=== PATIENT | female | born 1980 | race Caucasian/White ===

== ENCOUNTER → 2022-11-27 10:14 | Outpatient (BNVA) | payer SELFPAY | PROVIDERS: Visit Provider Physician Assistant Medical | DX: Z02.1 Encounter for pre-employment examination (principal) ==

== ENCOUNTER 2023-08-21 11:25 | Inpatient (IN) | payer BC, SELFPAY ==
--- NOTE | ~2023-08-21 | CT_ITS ---
EXAMINATION: CT ABDOMEN AND PELVIS WITH CONTRAST CLINICAL INFORMATION: Pancreatitis. Worsening abdominal pain. COMPARISON: None available. TECHNIQUE: Multidetector volumetric images were obtained from the superior aspect of the liver through the pubic symphysis following administration 85 mL of Omnipaque 350 intravenous contrast. Sagittal and coronal reformatted images were obtained on the technologist's workstation. Oral contrast: No This CT examination was performed using dose optimization techniques as appropriate, variously including the following: *Automated exposure control *Adjustment of mA and/or kV according to patient size (this includes techniques or standardized protocols for targeted exams where dose is matched to indication/reason for exam; i.e. extremities or head) *Use of iterative reconstruction technique DLP: 1071 mGy-cm FINDINGS: LUNG BASES: There are bilateral small pleural effusions with bibasilar atelectasis. The heart size is normal. LIVER, GALLBLADDER, AND BILIARY TREE: The liver is normal in size, shape, and diffusely hypoattenuated. No focal hepatic lesion or biliary ductal dilatation is present. The gallbladder is unremarkable with no evidence of radiopaque gallstones, gallbladder wall thickening, or obvious pericholecystic inflammatory changes. PANCREAS: There is normal enhancement seen throughout the pancreas with large amount of peripancreatic fluid collection from acute pancreatitis. Fluid tracks along bilateral paracolic gutter into the pelvis. The fluid has increased in the pelvis. There is no suspicion for necrosis. SPLEEN: Unremarkable. ADRENAL GLANDS: Unremarkable. KIDNEYS AND URETERS: The kidneys are normal in size, shape, and attenuation. No hydronephrosis, hydroureter, or calculi seen. No perinephric stranding. BLADDER: Unremarkable. GASTROINTESTINAL TRACT: There is scattered stool and gas seen throughout the colon without significant distention. The small bowel loops are normal caliber. Appendix is not seen. ABDOMINAL WALL: No significant hernia is appreciated. LYMPH NODES: Normal. VASCULAR: Unremarkable. PELVIC VISCERA: The uterus is anteverted with an IUD well located within the endometrial canal. No solid mass seen. There is small amount of free fluid in the pelvis. No abnormal pelvic or inguinal lymph nodes. OSSEOUS STRUCTURES: Unremarkable. CT/CT abdomen pelvis w IV con IMPRESSION: There is new bilateral small pleural effusions with underlying bibasilar atelectasis. Acute pancreatitis with peripancreatic fluid extending to bilateral paracolic gutters and pelvis which appears new. Mild fatty infiltration of liver. Fleischner guidelines were followed.
--- NOTE | ~2023-08-21 | CT_ITS ---
EXAMINATION: CT ABDOMEN AND PELVIS WITH CONTRAST CLINICAL INFORMATION: Abdominal pain. COMPARISON: None available. TECHNIQUE: Multidetector volumetric images were obtained from the superior aspect of the liver through the pubic symphysis following administration 85 mL of Omnipaque 350 intravenous contrast. Sagittal and coronal reformatted images were obtained on the technologist's workstation. Oral contrast: No This CT examination was performed using dose optimization techniques as appropriate, variously including the following: *Automated exposure control *Adjustment of mA and/or kV according to patient size (this includes techniques or standardized protocols for targeted exams where dose is matched to indication/reason for exam; i.e. extremities or head) *Use of iterative reconstruction technique DLP: 966 mGy-cm FINDINGS: LUNG BASES: There is minimal scarring or dependent atelectatic change at the left lung base. LIVER, GALLBLADDER, AND BILIARY TREE: The liver is of diminished attenuation. No focal liver lesions are seen. There is no intrahepatic biliary duct dilatation The gallbladder is unremarkable with no evidence of radiopaque gallstones, gallbladder wall thickening, or obvious pericholecystic inflammatory changes. PANCREAS: There is moderate peripancreatic infiltration/fluid. There is fluid tracking inferiorly along the retroperitoneum. SPLEEN: Unremarkable. ADRENAL GLANDS: Unremarkable. KIDNEYS AND URETERS: The kidneys are normal in size, shape, and attenuation. No hydronephrosis, hydroureter, or calculi seen. No perinephric stranding. BLADDER: Unremarkable. GASTROINTESTINAL TRACT: The small and large bowel are unremarkable. The appendix is unremarkable. ABDOMINAL WALL: No significant hernia is appreciated. LYMPH NODES: Normal. VASCULAR: Unremarkable. PELVIC VISCERA: An IUD is noted in place. OSSEOUS STRUCTURES: Unremarkable. CT/CT abdomen pelvis w IV con IMPRESSION: Moderate peripancreatic infiltration/fluid consistent with pancreatitis. Mild fatty infiltration of the liver. Fleischner guidelines were followed. Fleischner guidelines were followed.
--- NOTE | 2023-08-21 11:29 | ECG_ITS ---
Test Reason : cp abd pain Blood Pressure : / mmHG Vent. Rate : 071 BPM Atrial Rate : 071 BPM P-R Int : 140 ms QRS Dur : 082 ms QT Int : 402 ms P-R-T Axes : 020 024 014 degrees QTc Int : 436 ms Normal sinus rhythm Normal ECG No previous ECGs available Referred By: Rishabh Faye Electronically Signed By:ASHER SUN MD
[2023-08-21 12:17] VITALS: BP 153/101; PULSE 83; RESP 16; TEMP 35.8; O2SAT 98; BMI 38.7
--- NOTE | 2023-08-21 12:18 | ED.GENADULT ---
HPI - General Adult General Chief complaint: Abdominal Pain Stated complaint: chest pain and abd pain Time Seen by Provider: 08/21/23 14:11 Source: patient Mode of arrival: ambulatory Limitations: no limitations History of Present Illness HPI narrative: patient is an alcoholic, never in rehab who presents with increasing abdominal pain, vomiting and feeling like she is in withdrawal. She is not tolerating oral fluids Onset (ago): week(s) Severity: moderate Related Data Previous Rx's Medication Instructions Recorded cyclobenzaprine 10 mg tablet 10 mg PO BEDTIME #14 tabs 03/14/22 meloxicam 15 mg tablet 15 mg PO DAILY #14 tabs 03/14/22 Allergies Allergy/AdvReac Type Severity Reaction Status Date / Time No Known Allergies Allergy Mild NOT Unverified 03/14/22 12:38 APPLICABLE Review of Systems Review of Systems: Yes all other systems are reviewed and are negative Neurologic: Denies Sensory deficit (Neuro) [facility] Social History Social History Advance Directives: No Physical Exam ED Vital Signs: Vital Signs - 24 hr 08/21/23 12:17 Temperature 96.4 F L Pulse Rate 83 Respiratory Rate 16 Blood Pressure 153/101 H Pulse Oximetry 98 Oxygen Delivery Method Room Air BMI result Body Mass Index 38.7 Const Other: female looking ill, shaking Nutritional Appearance: average body habitus Orientation/consciousness: oriented to person and patient oriented x3 Limitations: no limitations HENMT Head: Yes normal to inspection Ears: external ears normal General nose exam: Normal external nose present Mouth: Normal oral and palatal mucosa present and oropharynx normal Throat: Yes posterior oropharynx normal Eyes General: appearance normal, both eyes and all related structures Neck Neck: Yes normal visual inspection Chest Chest palpation & inspection: normal inspection of the chest Resp Auscultation: clear to auscultation bilaterally Cardio Jugular venous distension: no JVD Rate: regular rate Rhythm: regular rhythm Heart sounds: S1 normal heart sound present and S2 normal heart sound present GI Other: epigastric pain Auscultation: normal bowel sounds General: Yes no CVA tenderness Back/Spine/Pelvis Back: no CVA tenderness Skin General skin exam: no rashes or lesions noted Neuro General: oriented to person and patient oriented x3 Cranial nerves: Yes CN's II-XII intact bilaterally Motor exam (neuro): 5/5 motor strength present throughout Sensory Exam: No Sensory deficit (Neuro) Extrem General: Yes normal to inspection Psych Appearance: grossly normal Course Course Course Narrative: [id number]-old female presents for evaluation of upper abdominal pain that radiates through to her back. Pain started at 5:00 a.m. this morning. Patient reports heavy alcohol use. Last drink was yesterday. Clinical concern for pancreatitis. Plan for labs. Imaging will be deferred to primary care provider Reevaluation(s) Reevaluation #1: Patient in both alcohol withdrawal and acute pancreatitis will get the patient admitted Time: 15:47 Reevaluation #2: I spent 40 minutes of critical care, with interventions, assessments, speaking to patient, consultants, and family. Time: 15:47 Medications Administered Generic Name Dose Route Start Last Admin Trade Name Freq PRN Reason Stop Dose Admin Sodium Chloride 1,000 mls @ 999 mls/hr 08/21/23 14:30 08/21/23 14:25 Ns IVCONT 08/21/23 16:30 999 mls/hr .Q1H1M ROBIN Administration Discontinued Medications Generic Name Dose Route Start Last Admin Trade Name Freq PRN Reason Stop Dose Admin Hydromorphone HCl 2 mg 08/21/23 15:00 08/21/23 15:08 Hydromorphone Hcl 2 Mg/Ml Vial IVPUSH 08/21/23 15:01 2 mg ONCE ONE Administration Protocol Iohexol 100 ml 08/21/23 14:48 08/21/23 14:48 Iohexol 350 Mg/Ml 100 Ml Infus..Btl IV 08/21/23 14:49 85 ml ONCE ONE Administration Pantoprazole Sodium 40 mg 08/21/23 14:16 08/21/23 14:24 Pantoprazole Sodium 40 Mg/10 Ml Vial IVPUSH 08/21/23 14:17 40 mg ONCE ONE Administration Phenobarbital Sodium 65 mg 08/21/23 14:16 08/21/23 14:24 Phenobarbital Sodium 65 Mg/Ml Vial IVPUSH 08/21/23 14:17 65 mg ONCE ONE Administration Medical Decision Making Differential Diagnosis Differential Diagnoses: The differential diagnosis associated with the presentation includes (pancreatitis, alcohol withdrawal, alcohol dependency) Admission/Observation Consideration of admission/observation: Escalation of care including admission/observation considered (upon arrival patient was considered for admission) Consult Healthcare Provider Management of the patient was discussed with: Hospitalist Lab Data MDM Lab Attestation statement: I reviewed the patient's lab results. (low bicarb noted) 08/21/23 12:28 08/21/23 12:28 Labs: Lab Results 08/21/23 Range/Units 12:28 WBC 16.2 H (4.8-10.8) X10*3/uL RBC 4.98 (4.20-5.50) X10*6/uL Hgb 15.5 (12.0-16.0) g/dl Hct 44.9 (37.0-47.0) % MCV 90.2 (80.0-98.0) fL MCH 31.1 (27.0-33.0) pg MCHC 34.5 (31.0-35.0) g/dl RDW 14.9 (11.0-16.0) % Plt Count 284 (160-400) X10*3/uL MPV 8.5 L (9.4-12.3) fL Immature Gran % (Auto) 0.6 H (0.0-0.4) % Neut % (Auto) 85.4 H (45-73) % Lymph % (Auto) 11.5 L (20-40) % [place] % (Auto) 2.2 (2-11) % Eos % (Auto) 0.1 (0-4) % Baso % (Auto) 0.2 (0-2) % Lymph # (Auto) 1.9 (1.2-4.9) X10*3/uL [place] # (Auto) 0.4 (0.1-1.2) X10*3/uL Eos # (Auto) 0.0 (0.0-0.4) X10*3/uL Baso # (Auto) 0.0 (0.0-0.2) X10*3/uL Abs Immat Gran (auto) 0.10 H (0.00-0.03) X10*3/uL Absolute Neuts (auto) 13.8 H (2.0-8.3) x10*3/uL Absolute Nucleated RBC 0.000 (0.0-0.012) X10*3/uL Nucleated RBC % (auto) 0.0 (0.0-0.2) /100WBC PT 11.1 (11.1-13.3) SEC INR 0.9 (0.9-1.1) APTT 27.1 (26.0-36.4) SEC Sodium 138 (135-145) mmol/L Potassium 4.1 (3.3-5.1) mmol/L Chloride 104 (96-108) mmol/L Carbon Dioxide 14 L (22-29) mmol/L Anion Gap 24 H (12-20) BUN 16 (9-16) mg/dL Creatinine 0.84 (0.5-1.4) mg/dL Estim Creat Clear Calc 110.1 Estimated GFR > 60 Random Glucose 136 H (60-115) mg/dL Calcium 9.2 (8.4-10.2) mg/dL Total Bilirubin 0.4 (0.0-1.0) mg/dL AST 65 H (5-31) U/L ALT 53 H (0-31) U/L Alkaline Phosphatase 80 (39-117) U/L Troponin I High Sens < 2.7 (<3.5-17.0) ng/L Total Protein 8.9 H (6.5-8.0) g/dL Albumin 4.2 (3.5-5.0) g/dL Lipase 1430 H (8-78) U/L Beta HCG, Quant < 2 mIU/mL Ethyl Alcohol 95 mg/dL Independent Interpretation I performed an independent interpretation of an: EKG (sinus 71, no st or twave changes) and CT Scan (abdomen: peripancreatic fluid) Radiology Impression Discussion of test interpretation with radiology: I have reviewed the radiologist's reading. Tests considered The following testing was considered but not selected: US considered but not evidence of gallstone pancreatitis Chronic Conditions Patient?s care impacted by: Other (alcoholism) Social Determinants Patient?s care significantly limited by Social Determinants of Health including: Alcoholism and drug addiction in family Discharge Plan Discharge Clinical Impression: Pancreatitis, Alcohol withdrawal Patient Disposition: Admitted As Inpatient
[2023-08-21 12:34] LABS: MANUAL DIFF FLAG NO
[2023-08-21 12:36] LABS: Basophils Percent Auto 0.2 % (0-2); Eosinophils Percent Auto 0.1 % (0-4); Hematocrit 44.9 % (37.0-47.0); Hemoglobin 15.5 g/dl (12.0-16.0); Imm Gran Pct Auto 0.6 % (0.0-0.4); Lymphocytes Absolute Auto 1.9 X10*3/uL (1.2-4.9); Lymphocytes Percent Auto 11.5 % (20-40); Mean Corpuscular HGB Conc 34.5 g/dl (31.0-35.0); Mean Corpuscular Hemoglobin 31.1 pg (27.0-33.0); Mean Corpuscular Volume 90.2 fL (80.0-98.0); Mean Platelet Volume 8.5 fL (9.4-12.3); Monocytes Absolute Auto 0.4 X10*3/uL (0.1-1.2); Monocytes Percent Auto 2.2 % (2-11); Neutrophils Absolute Auto 13.8 x10*3/uL (2.0-8.3); Neutrophils Percent Auto 85.4 % (45-73); Platelet Count 284 X10*3/uL (160-400); Red Blood Count 4.98 X10*6/uL (4.20-5.50); Red Cell Distribution Width 14.9 % (11.0-16.0); White Blood Count 16.2 X10*3/uL (4.8-10.8)
[2023-08-21 12:42] LABS: INTERNATIONAL NORM RATIO 0.9 (0.9-1.1); Prothrombin Time 11.1 SEC (11.1-13.3)
[2023-08-21 12:44] LABS: Partial Thromboplastin Time 27.1 SEC (26.0-36.4)
[2023-08-21 12:49] LABS: Ethanol 95 mg/dL
[2023-08-21 13:00] LABS: Troponin-I High Sensitivity < 2.7 ng/L (<3.5-17.0)
[2023-08-21 13:16] LABS: Alanine Aminotransferase 53 U/L (0-31); Albumin Level 4.2 g/dL (3.5-5.0); Alkaline Phosphatase 80 U/L (39-117); Anion Gap 24 (12-20); Aspartate Amino Transferase 65 U/L (5-31); Bilirubin Total 0.4 mg/dL (0.0-1.0); Blood Urea Nitrogen 16 mg/dL (9-16); Calcium 9.2 mg/dL (8.4-10.2); Carbon Dioxide 14 mmol/L (22-29); Chloride 104 mmol/L (96-108); Creatinine Clr Calc Pharmacy 110.1; Estimated Glomerular Filt Rate > 60; Glucose Random 136 mg/dL (60-115); HCG Quantitative < 2 mIU/mL; Lipase 1430 U/L (8-78); Potassium 4.1 mmol/L (3.3-5.1); Sodium 138 mmol/L (135-145); Total Protein 8.9 g/dL (6.5-8.0)
[2023-08-21] MEDS: Pantoprazole Sodium 40 MG/10 ML VIAL IVPUSH (14:24)
[2023-08-21] MEDS: PHENobarbitaL sodium 65 MG/ML VIAL IVPUSH (14:24)
[2023-08-21] MEDS: 0.9 % Sodium Chloride 1,000 ML 999 ML IVCONT ×2 (14:25→16:34)
[2023-08-21] MEDS: iohexoL 350 MG/ML 100 ML INFUS..BTL IV (14:48)
[2023-08-21] MEDS: HYDROmorphone HCl 2 MG/ML VIAL IVPUSH (15:08)
[2023-08-21] MEDS: LORazepam 1 MG TABLET 2 MG PO (16:34)
--- NOTE | 2023-08-21 17:31 | P.HPHOSP_ITS ---
<Statement entered by Patricia Johnson MD - 08/21/23 18:58> The patient was seen and evaluated with JANNA Evans. I agree with her note, assessment and plan with the following. In summary , a 43 year old lady with PMH of alcoholism among others who presents with abdominal pain and signs of withdrawal. #Acute alcoholic pancreatitis: IVF, Narcotics, NPO #Alcohol use disorder with alcohol withdrawal: Phenobarbital protocol, CIWA Rest of evaluations by PA note. History of Present Illness Date of Service: 08/21/23 Attending physician on admission: Patricia Johnson Chief Complaint: abd pain 43-year-old female with history of alcohol use disorder presented to the ED earlier today for evaluation of severe abdominal pain ongoing since this morning. The patient reports she drinks about 1 L of vodka on a daily basis, last drink was last night. This morning woke up with severe diffuse abdominal pain but worse in the epigastric area. Reports some anorexia but denies any nausea, vomiting. No fevers, chills, diarrhea, lightheadedness, shortness of breath or chest pain. Has never had similar symptoms in the past. She states she does feel like she is withdrawing from alcohol with palpitations, anxiety, and tremors. Has had similar withdrawal symptoms in the past but has never experienced a withdrawal seizure gone through delirium tremens. She does desire detox. Denies any SI/HI. On arrival, vital stable though hypertensive at 153/101. There is a leukocytosis of 16.2, likely reactive/inflammatory. Renal function is normal, electrolyte levels normal except for CO2 14, anion gap 25. Glucose 136. AST/ALT 65/53. Troponin below detectable limits. Lipase 1430. Ethyl alcohol 95. CT abdomen/pelvis shows moderate peripancreatic infiltration/fluid consistent with pancreatitis but there is no necrosis noted. There is also fatty liver. In the ED, has been given 65 mg phenobarbital, 40 mg pantoprazole, 2 L IVF bolus, hydromorphone, and lorazepam. Review of Systems 2 Review of Systems: General: No fevers, malaise, unintentional weight loss Cardiovascular: No chest pain, palpitations, or leg edema Respiratory: No shortness of breath, wheezing, cough GI: +abd pain, +anorexia. No nausea, vomiting, diarrhea, constipation, melena, hematochezia : No dysuria, hematuria, increased urinary frequency MSK: No myalgia, back pain Neuro: No headaches, weakness, paresthesias Skin: No rashes or lesions PMFSH Social History Advance Directives: No Meds Allergies Allergy/AdvReac Type Severity Reaction Status Date / Time No Known Allergies Allergy Mild NOT Unverified 03/14/22 12:38 APPLICABLE Physical Exam 2 Vital Signs and Narrative: Vital Signs: Last Vital Signs Temp 96.4 F L 08/21/23 12:17 Pulse 83 08/21/23 12:17 Resp 16 08/21/23 12:17 BP 153/101 H 08/21/23 12:17 Pulse Ox 98 08/21/23 12:17 O2 Del Method Room Air 08/21/23 12:17 BMI result Body Mass Index 38.7 Constitutional - Awake and Alert, uncomfortable appearing Eyes - PERRLA, EOMI Cardiovascular - S1S2, RRR, No edema Respiratory - Normal lung expansion, Normal respiratory effort, No respiratory distress, CTA bilaterally Gastrointestinal - significant diffuse ttp greated in epigastrium with guarding, ND; +BS; No rebound Extremities - no calf tenderness bilaterally, no swelling Skin - Warm/Dry Neurological - Alert & oriented x3 Psychological - Appropriate affect Results Labs 08/21/23 12:28 08/21/23 12:28 Labs: Laboratory Results - last 24 hr 08/21/23 12:28 MCV 90.2 MCH 31.1 MCHC 34.5 RDW 14.9 Plt Count 284 MPV 8.5 L Immature Gran % (Auto) 0.6 H Neut % (Auto) 85.4 H Lymph % (Auto) 11.5 L [place] % (Auto) 2.2 Eos % (Auto) 0.1 Baso % (Auto) 0.2 Lymph # (Auto) 1.9 [place] # (Auto) 0.4 Eos # (Auto) 0.0 Baso # (Auto) 0.0 Abs Immat Gran (auto) 0.10 H Absolute Neuts (auto) 13.8 H Absolute Nucleated RBC 0.000 Nucleated RBC % (auto) 0.0 PT 11.1 INR 0.9 APTT 27.1 Anion Gap 24 H Estim Creat Clear Calc 110.1 Estimated GFR > 60 Random Glucose 136 H Calcium 9.2 Total Bilirubin 0.4 AST 65 H ALT 53 H Alkaline Phosphatase 80 Total Protein 8.9 H Albumin 4.2 Lipase 1430 H Beta HCG, Quant < 2 Ethyl Alcohol 95 Imaging Radiologist's Impressions: Impressions Abdomen/Pelvis CT 08/21/23 14:52 IMPRESSION: Moderate peripancreatic infiltration/fluid consistent with pancreatitis. Mild fatty infiltration of the liver. Fleischner guidelines were followed. Fleischner guidelines were followed. Assessment and Plan (1) Pancreatitis: Status: Acute (2) Alcohol withdrawal: Status: Acute Plan 43-year-old female with history of alcohol use disorder to be observed for acute alcoholic pancreatitis and alcohol withdrawal. #Acute alcoholic pancreatitis -Lipase >1400, CT abd/pelvis shows pancreatitis, no necrosis -Aggressive IVF resuscitation with LR @150ml/hr -Pain management using pain scale with oxycodone, dilaudid -NPO for now except for small sips clears, advance as tolerated -Trend lipase -follow clinically -alcohol cessation strongly advised #Acute alcoholic ketoacidsis -AG 24, CO2 14 -IVF with LR -Follow BMP #Alcohol use disorder with alcohol withdrawal symptoms -etoh on arrival 97 -CIWA on admission 7 -initiate pehnobarbital per protocol -montior CIWA q4h -IV thiamine, folic acid -addiction medicine consult #Leukocytosis -reactive/inflammatory DVT prophylaxis- SCPs, early ambulation Full code Quality Stroke Does the patient have a stroke diagnosis?: No VTE Prior VTE?: No VTE Risk Level:: Medical - moderate - high VTE Device Contraindication: Treatment Not Indicated VTE Drug Contraindication: N/A - Med Ordered
[2023-08-21] MEDS: HYDROmorphone HCl 0.5 MG/0.5 ML SYRINGE IVPUSH ×2 (17:42→20:57)
[2023-08-21] MEDS: ondansetron HCL 4 MG/2 ML VIAL IVPUSH (17:42)
--- NOTE | 2023-08-21 18:15 | PHA.MEDREC ---
Pharmacy Consult ? Medication Reconciliation Pharmacy has completed the medication reconciliation. Patient says she does not take any medications at home.
[2023-08-21] MEDS: oxyCODONE HCl Immed Release 5 MG TABLET PO (18:21)
[2023-08-21 18:25] VITALS: BP 161/74; PULSE 89; RESP 16; TEMP 36.4; O2SAT 100
[2023-08-21] MEDS: PHENobarbitaL sodium 130 MG/ML IM ONCE 284 MG IM (18:26)
--- NOTE | 2023-08-21 18:34 | PC.NURSE ---
continues with abd pain, medicated per the MAR. after medication, patient complaining of pain at the IV site. patient difficult IV stick.
[2023-08-21] MEDS: Lactated Ringers 1,000 ML 150 ML IVCONT (18:45)
--- NOTE | 2023-08-21 18:51 | PC.NURSE ---
fluids infusing, second IV initiated in right forearm. reached out to hospitalist for additional pain medication, patient restless and unable to get pain under control.
[2023-08-21] MEDS: HYDROmorphone HCl 1 MG/ML SYRINGE IVPUSH (19:07)
[2023-08-21] MEDS: Thiamine HCL 100 MG in 0.9 % Sodium Chloride 100 ML 202 MG IV (19:21)
[2023-08-21] MEDS: Folic Acid 1 MG TABLET PO (19:23)
--- NOTE | 2023-08-21 20:58 | PC.NURSE ---
okayed early dose of 0.5MG dilaudid for pain
[2023-08-21 21:58] VITALS: BP 144/72; PULSE 107; RESP 14; TEMP 37.1; O2SAT 98
[2023-08-21] MEDS: PHENobarbitaL sodium 130 MG/ML VIAL IM Q3Hx2 213 MG IM (22:16)
[2023-08-21] MEDS: Morphine Sulfate 4 MG/ML CARTRIDGE IVPUSH (22:33)
[2023-08-21 22:40] LABS: Appearance Urine Clear; Color Urine Yellow; Glucose Urine UA Negative (Negative); Leukocyte Esterase Urine Negative (Negative); Nitrite Urine Negative (Negative); PH 5.5 (5.0-9.0); Specific Gravity - Urine >= 1.030 (1.005-1.025); UMIC TRIGGER UACC YES; Urine Blood Trace (Negative); Urine Ketones 40 mg/dL (Negative); Urine Protein 100 (2+) mg/dL (Neg-Trace)
[2023-08-21 22:56] LABS: Bacteria Urine 1+ (None Seen); RBC Urine 0-2 /HPF (0-2); WBC Urine 0-5 /HPF (0-5)
[2023-08-22] MEDS: oxyCODONE HCl Immed Release 5 MG TABLET PO ×2 (00:33→13:12)
[2023-08-22] MEDS: Lactated Ringers 1,000 ML 150 ML IVCONT ×2 (01:11→09:36)
[2023-08-22] MEDS: PHENobarbitaL sodium 130 MG/ML VIAL IM Q3Hx2 213 MG IM (01:11)
--- NOTE | 2023-08-22 02:11 | PC.NURSE ---
pt experiencing multiple episodes of pain, pt medicated many times with PRN pain medications. pt reports nothing is really taking the pain away. MD de
[2023-08-22] MEDS: Morphine Sulfate 4 MG/ML CARTRIDGE IVPUSH (02:33)
--- NOTE | 2023-08-22 02:42 | PC.NURSE ---
pt medicated w/ PRN morphine, pt c/o her arm itching after med administration, arm is red above the IV site. MD de
--- NOTE | 2023-08-22 03:14 | PC.NURSE ---
pt drinking small sips of clear liquids as allowed. tolerating well
[2023-08-22 04:44] VITALS: RESP 14
--- NOTE | 2023-08-22 05:07 | PC.NURSE ---
pt resting in bed, in pain with any movement but appears to be resting well at this time
[2023-08-22 05:13] VITALS: BP 150/71; PULSE 106; RESP 18; TEMP 36.5; O2SAT 98
[2023-08-22] MEDS: ondansetron HCL 4 MG/2 ML VIAL IVPUSH (05:21)
[2023-08-22] MEDS: HYDROmorphone HCl 1 MG/ML SYRINGE IVPUSH ×5 (05:22→22:02)
[2023-08-22 06:46] LABS: MANUAL DIFF FLAG NO
[2023-08-22 06:49] LABS: Basophils Percent Auto 0.2 % (0-2); Hematocrit 44.3 % (37.0-47.0); Imm Gran Abs Auto 0.07 X10*3/uL (0.00-0.03); Imm Gran Pct Auto 0.6 % (0.0-0.4); Lymphocytes Absolute Auto 1.2 X10*3/uL (1.2-4.9); Mean Corpuscular HGB Conc 33.9 g/dl (31.0-35.0); Mean Corpuscular Hemoglobin 31.3 pg (27.0-33.0); Mean Corpuscular Volume 92.3 fL (80.0-98.0); Mean Platelet Volume 9.2 fL (9.4-12.3); Monocytes Absolute Auto 0.6 X10*3/uL (0.1-1.2); Monocytes Percent Auto 4.6 % (2-11); Neutrophils Absolute Auto 10.3 x10*3/uL (2.0-8.3); Neutrophils Percent Auto 84.6 % (45-73); Platelet Count 191 X10*3/uL (160-400); Red Cell Distribution Width 15.1 % (11.0-16.0); White Blood Count 12.1 X10*3/uL (4.8-10.8)
[2023-08-22 07:07] LABS: Anion Gap 14 (12-20); Blood Urea Nitrogen 16 mg/dL (9-16); Calcium 8.3 mg/dL (8.4-10.2); Carbon Dioxide 23 mmol/L (22-29); Chloride 102 mmol/L (96-108); Estimated Glomerular Filt Rate > 60; Glucose Random 125 mg/dL (60-115); Potassium 4.2 mmol/L (3.3-5.1); Sodium 135 mmol/L (135-145)
[2023-08-22 07:15] LABS: Lipase 1956 U/L (8-78)
[2023-08-22 07:45] VITALS: BP 162/78; PULSE 108; RESP 15; TEMP 36.1; O2SAT 94
[2023-08-22] MEDS: 0.9 % Sodium Chloride Flush 3 ML SYRINGE IVFLUSH ×2 (09:34→19:45)
[2023-08-22] MEDS: Thiamine HCL 100 MG in 0.9 % Sodium Chloride 100 ML 200 MG IV (09:43)
[2023-08-22] MEDS: Folic Acid 1 MG TABLET PO (09:46)
[2023-08-22] MEDS: PHENobarbitaL 15 MG TABLET 45 MG PO ×2 (09:46→19:40)
--- NOTE | 2023-08-22 10:02 | MHC.CM.PN ---
PT REPORTS SHE LIVES WITH HER SPOUSE AND IS INDEPENDENT WITH CARE SHE HAS NO DME AND NO SERVICES PT SAYS SHE THINKS SHE HAS A HCP, SHE IS UNSURE IF SHE HAS A COPY, BUT DECLINES TO COMPLETE A NEW ONE SHE HAS NO PCP - LIST PROVIDED OBSERVATION NOTICE DELIVERED DCP: HOME NO SERVICES VIA PRIVATE TRANSPORT
--- NOTE | 2023-08-22 11:11 | PC.NURSE ---
Report given to Aliyah RN & care transferred at this time. Patient is presently resting quietly on strecher, appears in NAD. RR even and unlabored bilaterally. Awaiting IP bed assignment.
--- NOTE | 2023-08-22 13:29 | HO.PM.IMPN ---
Subjective Subjective Date of Service: 08/22/23 Interval History: Seen in follow-up for alcoholic pancreatitis, alcohol withdrawal Interval history: Feeling slightly better from yesterday. Reports 3/10 abdominal pain at rest, but with any movement reports 10/10 pain. No nausea or vomiting. Tolerating small sips of clears. Still requiring frequent IV narcotics with dose increase Review of Systems Review of Systems: Yes all other systems are reviewed and are negative Physical Exam Vital Signs: Vital Signs: Last Vital Signs Temp 97 F 08/22/23 07:45 Pulse 108 H 08/22/23 07:45 Resp 15 08/22/23 07:45 BP 162/78 H 08/22/23 07:45 Pulse Ox 94 08/22/23 07:45 O2 Del Method Room Air 08/22/23 07:45 BMI result Body Mass Index 38.7 Constitutional - Awake and Alert, No apparent distress Eyes - PERRLA, EOMI Cardiovascular - S1S2, RRR, No edema Respiratory - Normal lung expansion, Normal respiratory effort, No respiratory distress, CTA bilaterally Gastrointestinal - significant epigastric ttp with voluntary guarding. ND; +BS; No rebound Extremities - no calf tenderness bilaterally, no swelling Skin - Warm/Dry Neurological - Alert & oriented x3 Psychological - Appropriate affect Objective Data Active Medications Acetaminophen (Acetaminophen 325 Mg Tablet) 650 mg PO Q6H PRN PRN Reason: Pain, Mild (Pain Scale 1-3) Folic Acid (Folic Acid 1 Mg Tablet) 1 mg PO DAILY [facility] Last Admin: 08/22/23 09:46 Dose: 1 mg Documented By: YOVANI Hydromorphone HCl (Hydromorphone Hcl 1 Mg/Ml Syringe) 1 mg IVPUSH Q4H PRN; Protocol PRN Reason: Pain, Severe (Pain Scale 7-10) Last Admin: 08/22/23 09:34 Dose: 1 mg Documented By: YOVANI Lactated Ringer's (Lr) 1,000 mls @ 150 mls/hr IVCONT .Q6H40M [facility] Last Admin: 08/22/23 09:36 Dose: 150 mls/hr Documented By: YOVANI Thiamine HCl 100 mg/ Sodium (Chloride) 101 mls @ 202 mls/hr IV DAILY [facility] Last Infusion: 08/22/23 10:36 Dose: Infused Documented By: YOVANI Naloxone HCl (Naloxone Hcl 0.4 Mg/Ml Vial) 0.4 mg IVPUSH ONCE PRN PRN Reason: Respiratory Rate < 10 Ondansetron HCl (Ondansetron Hcl 4 Mg/2 Ml Vial) 4 mg IVPUSH Q8H PRN PRN Reason: Nausea and Vomiting Last Admin: 08/22/23 05:21 Dose: 4 mg Documented By: MARY ELLEN Oxycodone HCl (Oxycodone Hcl Immed Release 5 Mg Tablet) 5 mg PO Q6H PRN PRN Reason: Pain, Moderate(Pain Scale 4-6) Last Admin: 08/22/23 13:12 Dose: 5 mg Documented By: ROHAN Pharmacy Consult (Consult Rx Etoh Phenob Im/Po) 1 each MISCELLANE ONCE PRN; Protocol PRN Reason: Consult order Phenobarbital (Phenobarbital 15 Mg Tablet) 45 mg PO BID [facility] Stop: 08/23/23 21:01 Last Admin: 08/22/23 09:46 Dose: 45 mg Documented By: YOVANI Phenobarbital (Phenobarbital 30 Mg Tablet) 30 mg PO BID [facility] Stop: 08/25/23 21:01 Phenobarbital (Phenobarbital 15 Mg Tablet) 15 mg PO DAILY [facility] Stop: 08/27/23 09:01 Senna (Sennosides 8.6 Mg Tablet) 17.2 mg PO BEDTIME PRN PRN Reason: Constipation Sodium Chloride (0.9 % Sodium Chloride Flush 3 Ml Syringe) 3 ml IVFLUSH QSHIFT [facility] Last Admin: 08/22/23 09:34 Dose: 3 ml Documented By: YOVANI Labs 08/22/23 06:03 08/22/23 06:03 Labs: Laboratory Results - last 24 hr 08/21/23 08/22/23 22:25 06:03 MCV 92.3 MCH 31.3 MCHC 33.9 RDW 15.1 Plt Count 191 D MPV 9.2 L Immature Gran % (Auto) 0.6 H Neut % (Auto) 84.6 H Lymph % (Auto) 10.0 L [place] % (Auto) 4.6 Eos % (Auto) 0.0 Baso % (Auto) 0.2 Lymph # (Auto) 1.2 [place] # (Auto) 0.6 Eos # (Auto) 0.0 Baso # (Auto) 0.0 Abs Immat Gran (auto) 0.07 H Absolute Neuts (auto) 10.3 H Absolute Nucleated RBC 0.000 Nucleated RBC % (auto) 0.0 Anion Gap 14 Estim Creat Clear Calc 117.0 Estimated GFR > 60 Random Glucose 125 H Calcium 8.3 L D Lipase 1955 H Urine Color Yellow Urine Appearance Clear Urine pH 5.5 Ur Specific [place] >= 1.030 H Urine Protein 100 (2+) H Urine Glucose (UA) Negative Urine Ketones 40 Urine Blood Trace H Urine Nitrite Negative Ur Leukocyte Esterase Negative Urine RBC 0-2 Urine WBC 0-5 Ur Squamous Epith Cells 11-20 Urine Bacteria 1+ Hyaline Casts 6-10 Assessment and Plan (1) Alcohol withdrawal: Status: Acute (2) Pancreatitis: Status: Acute Plan 43-year-old female with history of alcohol use disorder to be observed for acute alcoholic pancreatitis and alcohol withdrawal. Still with significant abdominal pain on aggressive IVF and IV narcotics tolerating only small sips clear liquids. Lipase trending up. #Acute alcoholic pancreatitis -Lipase 1400-->1955 -Aggressive IVF resuscitation with LR, increase rate to 200ml/hr -Pain management using pain scale with oxycodone, dilaudid (increased to 1mg q4h last night due to uncontrolled pain) -advance diet to clears -Trend lipase. If continues to trend up, checks ducts and GI consult -follow clinically -alcohol cessation strongly advised #Acute alcoholic ketoacidsis- resolved #Alcohol use disorder with alcohol withdrawal symptoms -CIWA q4h -Continue phenobarbital per protocol -IV thiamine, folic acid -addiction medicine consult #Leukocytosis -reactive/inflammatory DVT prophylaxis- SCPs, early ambulation Full code Given ongoing severe abdominal pain requiring increased dose of IV narcotics and aggressive fluid administration who is still only tolerating small sips of clears liquids without aggravation of pain, patient will require inpt stay at least 2 midnights for ongoing management of acute alcoholic pancreatitis in acute alcohol withdrawal on phenobarb per protocol. Quality Stroke Does the patient have a stroke diagnosis?: No VTE Prior VTE?: No VTE Risk Level:: Medical - moderate - high VTE Device Contraindication: Treatment Not Indicated VTE Drug Contraindication: N/A - Med Ordered
--- NOTE | 2023-08-22 13:45 | PC.NURSE ---
ASSUMED CARE OF THIS PT. A&OX4, HAS BEEN INTERMITTENTLY SLEEPING THIS AM. SKIN PWD, MM SLIGHTLY DRY, SHE ENDORSES PAIN WITH ANY ORAL INTAKE, IN ADDITION TO PAIN WITH ANY MOVEMENT. WHEN COMPLETELY AT REST SHE DESCRIBED UPPER ABD PAIN 1 OR 2. ENDORSES MILD ETOH WD SXS, LAST CIWA SCORE 5, NEXT PHENOBARB DUE THIS EVENING. PT AWARE OF PLAN FOR CARE, IVF RUNNING. MEDICATED FOR PAIN WITH PRN OXYCODONE.
[2023-08-22 14:13] VITALS: BMI 41.8
[2023-08-22 14:37] VITALS: BP 149/74; PULSE 116; RESP 12; TEMP 36.2; O2SAT 96
[2023-08-22] MEDS: Lactated Ringers 1,000 ML 200 ML IVCONT ×3 (15:03→23:54)
[2023-08-22 19:10] VITALS: BP 153/78; PULSE 121; RESP 18; TEMP 36.9; O2SAT 93
[2023-08-23] MEDS: HYDROmorphone HCl 1 MG/ML SYRINGE IVPUSH ×2 (02:06→06:03)
[2023-08-23 04:00] VITALS: BP 143/77; PULSE 114; RESP 18; TEMP 37.5; O2SAT 92
[2023-08-23] MEDS: Lactated Ringers 1,000 ML 200 ML IVCONT ×4 (04:29→20:05)
[2023-08-23 06:31] LABS: MANUAL DIFF FLAG NO
[2023-08-23 06:53] LABS: Anion Gap 12 (12-20); Blood Urea Nitrogen 7 mg/dL (9-16); Calcium 7.9 mg/dL (8.4-10.2); Carbon Dioxide 26 mmol/L (22-29); Chloride 98 mmol/L (96-108); Creatinine Clr Calc Pharmacy 132.2; Estimated Glomerular Filt Rate > 60; Glucose Random 97 mg/dL (60-115); Potassium 3.2 mmol/L (3.3-5.1); Sodium 133 mmol/L (135-145)
[2023-08-23 06:56] LABS: Basophils Percent Auto 0.2 % (0-2); Eosinophils Percent Auto 0.2 % (0-4); Hematocrit 38.7 % (37.0-47.0); Hemoglobin 12.9 g/dl (12.0-16.0); Imm Gran Abs Auto 0.09 X10*3/uL (0.00-0.03); Imm Gran Pct Auto 0.7 % (0.0-0.4); Lymphocytes Absolute Auto 1.6 X10*3/uL (1.2-4.9); Lymphocytes Percent Auto 12.6 % (20-40); Mean Corpuscular HGB Conc 33.3 g/dl (31.0-35.0); Mean Corpuscular Hemoglobin 31.4 pg (27.0-33.0); Mean Corpuscular Volume 94.2 fL (80.0-98.0); Mean Platelet Volume 9.3 fL (9.4-12.3); Monocytes Absolute Auto 0.6 X10*3/uL (0.1-1.2); Monocytes Percent Auto 4.3 % (2-11); Neutrophils Absolute Auto 10.6 x10*3/uL (2.0-8.3); Platelet Count 192 X10*3/uL (160-400); Red Blood Count 4.11 X10*6/uL (4.20-5.50); Red Cell Distribution Width 15.2 % (11.0-16.0); White Blood Count 12.9 X10*3/uL (4.8-10.8)
[2023-08-23 07:03] LABS: Lipase 782 U/L (8-78)
[2023-08-23 07:24] VITALS: BP 143/81; PULSE 100; RESP 16; TEMP 36.6; O2SAT 96
[2023-08-23] MEDS: PHENobarbitaL 15 MG TABLET 45 MG PO ×2 (08:08→20:07)
[2023-08-23] MEDS: oxyCODONE HCl Immed Release 5 MG TABLET PO ×2 (08:08→15:21)
[2023-08-23] MEDS: Folic Acid 1 MG TABLET PO (08:09)
[2023-08-23] MEDS: Potassium Chloride Packet 20 MEQ PACKET 40 MEQ PO (08:09)
[2023-08-23] MEDS: 0.9 % Sodium Chloride Flush 3 ML SYRINGE IVFLUSH ×2 (08:09→22:31)
[2023-08-23] MEDS: Thiamine HCL 100 MG in 0.9 % Sodium Chloride 100 ML 202 MG IV ×2 (08:15→22:27)
[2023-08-23] MEDS: HYDROmorphone HCl 1 MG/ML SYRINGE 0.25 MG IVPUSH ×2 (09:29→13:49)
--- NOTE | 2023-08-23 12:27 | MHC.RECOVRN ---
Addendum entered by Yanira Willams 08/23/23 14:02: Pt has [facility] appt on 08/30 at 3:30PM with Ale Rich NP. Original Note: Met with pt in 344 after consult placed to Addiction Medicine for alcohol use. Pt had presented to the ED c/o abdominal and chest pain. Had been drinking alcohol daily. Upon evaluation pt admitted for pancreatitis and alcohol withdrawal. Pt sitting in bed, awake, alert, engages in conversation, guarded around discussion of alcohol use. Pt frequently attempting to reposition in bed due to diffuse body pain. Pt reports alcohol use x 2 years, in the past 6 months has been drinking 1 liter of vodka daily. Pt reports one period of abstinence in 2020 x 1 year. States I just did it on my own. Pt denies hx tx AUD, however, reports she did attend some AA meetings. Pt found AA to be helpful and plans to return. Pt is quite educated on recovery resources and supports. Discussed FRANCIA, pt is interested in initiating medication when opioids are discontinued. Pt would like to follow up with the [facility] Pt provided with written resources as well as t/w contact information if needed. Discussed with Riana Mendoza APRN.
--- NOTE | 2023-08-23 14:29 | P.PNIM_ITS ---
Subjective Subjective Date of Service: 08/23/23 Interval History: Seen in follow-up for alcoholic pancreatitis, alcohol withdrawal Interval history: Feels worse today. 4-5/10 pain at rest, 10/10 with any movement. Still requiring IV narcotics. Unable to advance diet due to pain. No n/v Review of Systems Review of Systems: Yes all other systems are reviewed and are negative Physical Exam 2 Vital Signs: Vital Signs: Last Vital Signs Temp 97.8 F 08/23/23 07:24 Pulse 100 08/23/23 07:24 Resp 16 08/23/23 07:24 BP 143/81 H 08/23/23 07:24 Pulse Ox 96 08/23/23 07:24 O2 Del Method Room Air 08/23/23 07:24 BMI result Body Mass Index 41.8 Constitutional - Awake and Alert, No apparent distress Eyes - PERRLA, EOMI Cardiovascular - S1S2, RRR, No edema Respiratory - Normal lung expansion, Normal respiratory effort, No respiratory distress, CTA bilaterally Gastrointestinal - moderate upper abd pain with guarding, no rebound with mild distension. +BS - No CVA tenderness Extremities - no calf tenderness bilaterally, no swelling Skin - Warm/Dry Neurological - Alert & oriented x3 Psychological - Appropriate affect Objective Data Active Medications Acetaminophen (Acetaminophen 325 Mg Tablet) 650 mg PO Q6H PRN PRN Reason: Pain, Mild (Pain Scale 1-3) Folic Acid (Folic Acid 1 Mg Tablet) 1 mg PO DAILY [facility] Last Admin: 08/23/23 08:09 Dose: 1 mg Documented By: DULCE MARIA Hydromorphone HCl (Hydromorphone Hcl 1 Mg/Ml Syringe) 0.25 mg IVPUSH Q4H PRN; Protocol PRN Reason: Pain, Severe (Pain Scale 7-10) Last Admin: 08/23/23 13:49 Dose: 0.25 mg Documented By: DULCE MARIA Lactated Ringer's (Lr) 1,000 mls @ 200 mls/hr IVCONT .Q5H [facility] Last Admin: 08/23/23 09:30 Dose: 200 mls/hr Documented By: ATIF Thiamine HCl 100 mg/ Sodium (Chloride) 101 mls @ 202 mls/hr IV DAILY [facility] Last Infusion: 08/23/23 08:49 Dose: Infused Documented By: DULCE MARIA Naloxone HCl (Naloxone Hcl 0.4 Mg/Ml Vial) 0.4 mg IVPUSH ONCE PRN PRN Reason: Respiratory Rate < 10 Ondansetron HCl (Ondansetron Hcl 4 Mg/2 Ml Vial) 4 mg IVPUSH Q8H PRN PRN Reason: Nausea and Vomiting Last Admin: 08/22/23 05:21 Dose: 4 mg Documented By: MARY ELLEN Oxycodone HCl (Oxycodone Hcl Immed Release 5 Mg Tablet) 5 mg PO Q6H PRN PRN Reason: Pain, Moderate(Pain Scale 4-6) Last Admin: 08/23/23 08:08 Dose: 5 mg Documented By: DULCE MARIA Pharmacy Consult (Consult Rx Etoh Phenob Im/Po) 1 each MISCELLANE ONCE PRN; Protocol PRN Reason: Consult order Phenobarbital (Phenobarbital 15 Mg Tablet) 45 mg PO BID [facility] Stop: 08/23/23 21:01 Last Admin: 08/23/23 08:08 Dose: 45 mg Documented By: DULCE MARIA Phenobarbital (Phenobarbital 30 Mg Tablet) 30 mg PO BID [facility] Stop: 08/25/23 21:01 Phenobarbital (Phenobarbital 15 Mg Tablet) 15 mg PO DAILY [facility] Stop: 08/27/23 09:01 Senna (Sennosides 8.6 Mg Tablet) 17.2 mg PO BEDTIME PRN PRN Reason: Constipation Sodium Chloride (0.9 % Sodium Chloride Flush 3 Ml Syringe) 3 ml IVFLUSH QSHIFT [facility] Last Admin: 08/23/23 08:09 Dose: 3 ml Documented By: DULCE MARIA Labs 08/23/23 05:36 08/23/23 05:36 Labs: Laboratory Results - last 24 hr 08/23/23 05:36 MCV 94.2 MCH 31.4 MCHC 33.3 RDW 15.2 Plt Count 192 MPV 9.3 L Immature Gran % (Auto) 0.7 H Neut % (Auto) 82.0 H Lymph % (Auto) 12.6 L [place] % (Auto) 4.3 Eos % (Auto) 0.2 Baso % (Auto) 0.2 Lymph # (Auto) 1.6 [place] # (Auto) 0.6 Eos # (Auto) 0.0 Baso # (Auto) 0.0 Abs Immat Gran (auto) 0.09 H Absolute Neuts (auto) 10.6 H Absolute Nucleated RBC 0.000 Nucleated RBC % (auto) 0.0 Anion Gap 12 Estim Creat Clear Calc 132.2 Estimated GFR > 60 Random Glucose 97 Calcium 7.9 L Lipase 782 H Assessment and Plan (1) Alcohol withdrawal: Status: Acute (2) Pancreatitis: Status: Acute Plan 43-year-old female with history of alcohol use disorder to be observed for acute alcoholic pancreatitis and alcohol withdrawal. Still with significant abdominal pain on aggressive IVF and IV narcotics tolerating only small sips clear liquids. Lipase trending down. Pain worsening compared to yesterday, not tolerating clears #Acute alcoholic pancreatitis -Lipase trending down. WBC stable -Aggressive IVF resuscitation with LR, rate to 200ml/hr -Pain management using pain scale with oxycodone, dilaudid -pain levels worse compares to yesterday. CT abd pelvis w/ contrast to rule out worsening pancreatitis/necrosis -Clear liquids as tolerated -follow clinically -alcohol cessation strongly advised #Acute alcoholic ketoacidsis- resolved #Alcohol use disorder with alcohol withdrawal symptoms -CIWA q4h -Continue phenobarbital per protocol -IV thiamine, folic acid -See recovery note. Pt to continue with [facility] on discharge and start medication once opioids discontinued #Leukocytosis -reactive/inflammatory DVT prophylaxis- SCPs, early ambulation Full code Given ongoing severe abdominal pain requiring increased dose of IV narcotics and aggressive fluid administration who is still only tolerating small sips of clears liquids without aggravation of pain, patient will require further imaging to rule out necrosis and ongoing inpt stay Quality Stroke Does the patient have a stroke diagnosis?: No VTE Prior VTE?: No VTE Risk Level:: Medical - moderate - high VTE Device Contraindication: Treatment Not Indicated VTE Drug Contraindication: N/A - Med Ordered
[2023-08-23 15:06] VITALS: BP 142/62; PULSE 122; RESP 18; TEMP 36.8; O2SAT 92
[2023-08-23] MEDS: iohexoL 350 MG/ML 100 ML INFUS..BTL IV (18:35)
[2023-08-23] MEDS: HYDROmorphone HCl 1 MG/ML SYRINGE 0.5 MG IVPUSH ×2 (18:37→22:31)
[2023-08-23 19:08] VITALS: BP 162/77; PULSE 123; RESP 18; TEMP 36.9; O2SAT 93
[2023-08-24] MEDS: Lactated Ringers 1,000 ML 200 ML IVCONT ×2 (00:55→04:34)
[2023-08-24] MEDS: HYDROmorphone HCl 1 MG/ML SYRINGE 0.5 MG IVPUSH ×6 (02:41→22:21)
[2023-08-24 04:00] VITALS: BP 135/74; PULSE 104; RESP 16; TEMP 38.2; O2SAT 93
[2023-08-24] MEDS: Acetaminophen 325 MG TABLET 650 MG PO (04:38)
[2023-08-24 04:51] LABS: MANUAL DIFF FLAG NO
[2023-08-24 04:54] LABS: Basophils Percent Auto 0.2 % (0-2); Eosinophils Absolute Auto 0.1 X10*3/uL (0.0-0.4); Eosinophils Percent Auto 0.7 % (0-4); Hemoglobin 11.2 g/dl (12.0-16.0); Imm Gran Abs Auto 0.14 X10*3/uL (0.00-0.03); Imm Gran Pct Auto 1.1 % (0.0-0.4); Lymphocytes Absolute Auto 1.6 X10*3/uL (1.2-4.9); Lymphocytes Percent Auto 12.6 % (20-40); Mean Corpuscular HGB Conc 32.9 g/dl (31.0-35.0); Mean Corpuscular Volume 94.2 fL (80.0-98.0); Mean Platelet Volume 8.9 fL (9.4-12.3); Monocytes Absolute Auto 0.7 X10*3/uL (0.1-1.2); Monocytes Percent Auto 5.6 % (2-11); Neutrophils Absolute Auto 10.4 x10*3/uL (2.0-8.3); Neutrophils Percent Auto 79.8 % (45-73); Platelet Count 150 X10*3/uL (160-400); Red Blood Count 3.61 X10*6/uL (4.20-5.50); Red Cell Distribution Width 14.8 % (11.0-16.0)
[2023-08-24 05:14] LABS: Anion Gap 13 (12-20); Blood Urea Nitrogen 5 mg/dL (9-16); Calcium 7.7 mg/dL (8.4-10.2); Carbon Dioxide 24 mmol/L (22-29); Chloride 99 mmol/L (96-108); Creatinine Clr Calc Pharmacy 148.4; Estimated Glomerular Filt Rate > 60; Glucose Random 98 mg/dL (60-115); Potassium 3.1 mmol/L (3.3-5.1); Sodium 133 mmol/L (135-145)
[2023-08-24 06:18] VITALS: TEMP 36.9
[2023-08-24 07:23] LABS: Magnesium 1.7 mg/dL (1.6-2.6)
[2023-08-24 07:34] VITALS: BP 154/77; PULSE 96; RESP 16; TEMP 36; O2SAT 92
[2023-08-24] MEDS: Thiamine HCL 100 MG TABLET PO (08:47)
[2023-08-24] MEDS: PHENobarbitaL 30 MG TABLET PO ×2 (08:47→20:11)
[2023-08-24] MEDS: Thiamine HCL 100 MG in 0.9 % Sodium Chloride 100 ML 202 MG IV (08:47)
[2023-08-24] MEDS: Folic Acid 1 MG TABLET PO (08:47)
[2023-08-24] MEDS: Potassium Chloride ER 20 MEQ TAB.ER.PRT 40 MEQ PO ×2 (08:48→20:10)
[2023-08-24] MEDS: oxyCODONE HCl Immed Release 5 MG TABLET PO ×3 (08:48→21:16)
[2023-08-24] MEDS: 0.9 % Sodium Chloride Flush 3 ML SYRINGE IVFLUSH (08:49)
[2023-08-24] MEDS: ondansetron HCL 4 MG/2 ML VIAL IVPUSH (09:03)
[2023-08-24] MEDS: Magnesium Sulfate/H2O 2 GM/50 ML PIGGYBACK IV (10:36)
[2023-08-24] MEDS: Famotidine/PF 20 MG/2 ML VIAL IVPUSH (10:36)
[2023-08-24 10:42] LABS: Alanine Aminotransferase 26 U/L (0-31); Albumin Level 2.8 g/dL (3.5-5.0); Alkaline Phosphatase 50 U/L (39-117); Aspartate Amino Transferase 34 U/L (5-31); Bilirubin Direct 0.4 mg/dL (0.0-0.5); Bilirubin Total 0.7 mg/dL (0.0-1.0)
[2023-08-24] MEDS: Lactated Ringers 1,000 ML 150 ML IVCONT (10:48)
--- NOTE | 2023-08-24 12:27 | MHC.CM.PN ---
PATIENT STILL ACUTE. PLAN FOR DC HOME NO SERVICES BY SUNDAY 08/26
[2023-08-24] MEDS: Lactated Ringers 1,000 ML 100 ML IVCONT ×2 (13:17→22:25)
--- NOTE | 2023-08-24 13:43 | MHC.RECOVRN ---
Met with pt to check in and provide information about [facility] appt next week. Pt reports fever overnight and feeling worse today, pt did tell me she discussed this with her nurse. Pt continues to agree to outpatient follow up for AUD tx. Denies questions or concerns for t/w.
--- NOTE | 2023-08-24 14:22 | P.PNIM_ITS ---
Subjective Subjective Date of Service: 08/24/23 Interval History: seen and examined this morning follow up for pancreatitis reporting abdominal pain worsening after attempting full liquids this morning no vomiting Review of Systems Review of Systems: Yes all other systems are reviewed and are negative Constitutional Constitutional: Denies chills and Denies fever(s) Cardiovascular Cardiovascular: Denies chest pain, Denies palpitations and Denies dyspnea Respiratory Respiratory: Denies cough and Denies dyspnea Gastrointestinal Gastrointestinal: Reports abdominal pain Endocrine Endocrine: Denies palpitations Physical Exam 2 Vital Signs: Vital Signs: Last Vital Signs Temp 96.8 F 08/24/23 07:34 Pulse 96 08/24/23 07:34 Resp 16 08/24/23 07:34 BP 154/77 H 08/24/23 07:34 Pulse Ox 92 08/24/23 07:34 O2 Del Method Room Air 08/24/23 07:34 BMI result Body Mass Index 41.8 Const: General: cooperative, comfortable, no acute distress, alert and awake Nutritional Appearance: overweight Orientation/consciousness: patient oriented x3 Resp: Effort & Inspection: normal respiratory effort, able to speak in complete sentences, no respiratory distress and no use of accessory muscles Cardio: Rate: regular rate GI: Other: epigatric tenderness, no guarding or rebound Inspection: No distended Palpation (GI): Soft to palpation Neuro: General: patient oriented x3, moves all extremities and CN's II-XI intact bilaterally Objective Data Active Medications Acetaminophen (Acetaminophen 325 Mg Tablet) 650 mg PO Q6H PRN PRN Reason: Pain, Mild (Pain Scale 1-3) Last Admin: 08/24/23 04:38 Dose: 650 mg Documented By: DOROTHY Famotidine (Famotidine/Pf 20 Mg/2 Ml Vial) 20 mg IVPUSH DAILY [facility] Last Admin: 08/24/23 10:36 Dose: 20 mg Documented By: DULCE MARIA Folic Acid (Folic Acid 1 Mg Tablet) 1 mg PO DAILY [facility] Last Admin: 08/24/23 08:47 Dose: 1 mg Documented By: DULCE MARIA Hydromorphone HCl (Hydromorphone Hcl 1 Mg/Ml Syringe) 0.5 mg IVPUSH Q4H PRN; Protocol PRN Reason: Pain, Severe (Pain Scale 7-10) Last Admin: 08/24/23 10:19 Dose: 0.5 mg Documented By: DULCE MARIA Thiamine HCl 100 mg/ Sodium (Chloride) 101 mls @ 202 mls/hr IV DAILY [facility] Last Infusion: 08/24/23 09:17 Dose: Infused Documented By: DULCE MARIA Lactated Ringer's (Lr) 1,000 mls @ 100 mls/hr IVCONT .Q10H [facility] Last Admin: 08/24/23 13:17 Dose: 100 mls/hr Documented By: FRANCESCA Naloxone HCl (Naloxone Hcl 0.4 Mg/Ml Vial) 0.4 mg IVPUSH ONCE PRN PRN Reason: Respiratory Rate < 10 Ondansetron HCl (Ondansetron Hcl 4 Mg/2 Ml Vial) 4 mg IVPUSH Q8H PRN PRN Reason: Nausea and Vomiting Last Admin: 08/24/23 09:03 Dose: 4 mg Documented By: DULCE MARIA Oxycodone HCl (Oxycodone Hcl Immed Release 5 Mg Tablet) 5 mg PO Q6H PRN PRN Reason: Pain, Moderate(Pain Scale 4-6) Last Admin: 08/24/23 08:48 Dose: 5 mg Documented By: DULCE MARIA Pharmacy Consult (Consult Rx Etoh Phenob Im/Po) 1 each MISCELLANE ONCE PRN; Protocol PRN Reason: Consult order Phenobarbital (Phenobarbital 30 Mg Tablet) 30 mg PO BID [facility] Stop: 08/25/23 21:01 Last Admin: 08/24/23 08:47 Dose: 30 mg Documented By: DULCE MARIA Phenobarbital (Phenobarbital 15 Mg Tablet) 15 mg PO DAILY [facility] Stop: 08/27/23 09:01 Potassium Chloride (Potassium Chloride Er 20 Meq Tab.Er.Prt) 40 meq PO BID [facility] Stop: 08/24/23 21:01 Last Admin: 08/24/23 08:48 Dose: 40 meq Documented By: DULCE MARIA Senna (Sennosides 8.6 Mg Tablet) 17.2 mg PO BEDTIME PRN PRN Reason: Constipation Sodium Chloride (0.9 % Sodium Chloride Flush 3 Ml Syringe) 3 ml IVFLUSH QSHIFT [facility] Last Admin: 08/24/23 08:49 Dose: 3 ml Documented By: DULCE MARIA Thiamine HCl (Thiamine Hcl 100 Mg Tablet) 100 mg PO DAILY [facility] Last Admin: 08/24/23 08:47 Dose: 100 mg Documented By: DULCE MARIA Trazodone HCl (Trazodone Hcl 25 Mg Halftab) 25 mg PO BEDTIME MRX1 PRN PRN Reason: Sleep Labs 08/24/23 04:32 08/24/23 04:32 Labs: Laboratory Results - last 24 hr 08/24/23 04:32 MCV 94.2 MCH 31.0 MCHC 32.9 RDW 14.8 Plt Count 150 L MPV 8.9 L Immature Gran % (Auto) 1.1 H Neut % (Auto) 79.8 H Lymph % (Auto) 12.6 L [place] % (Auto) 5.6 Eos % (Auto) 0.7 Baso % (Auto) 0.2 Lymph # (Auto) 1.6 [place] # (Auto) 0.7 Eos # (Auto) 0.1 Baso # (Auto) 0.0 Abs Immat Gran (auto) 0.14 H Absolute Neuts (auto) 10.4 H Absolute Nucleated RBC 0.000 Nucleated RBC % (auto) 0.0 Anion Gap 13 Estim Creat Clear Calc 148.4 Estimated GFR > 60 Random Glucose 98 Calcium 7.7 L Magnesium 1.7 Total Bilirubin 0.7 Direct Bilirubin 0.4 AST 34 H ALT 26 Alkaline Phosphatase 50 Total Protein 6.0 L Albumin 2.8 L Assessment and Plan (1) Pancreatitis: Status: Acute Plan 43-year-old female with history of alcohol use disorder to be observed for acute alcoholic pancreatitis and alcohol withdrawal. Still with significant abdominal pain on aggressive IVF and IV narcotics tolerating only small sips clear liquids. Lipase trending down. Pain worsening compared to yesterday, not tolerating clears #Acute alcoholic pancreatitis with ongoing abdominal pain, will downgrade to clear liquid diet -repeat CT 08/23 with new peripancreatic fluid -will reduce IVF -continue supportive care -alcohol cessation strongly advised #Acute alcoholic ketoacidsis- resolved #Alcohol use disorder with alcohol withdrawal -Continue phenobarbital per protocol -IV thiamine, folic acid -See recovery note. Pt to continue with [facility] on discharge and start medication once opioids discontinued #hypokalemia replace and follow magnesium on low side, will give 2 gm IV #Leukocytosis -reactive/inflammatory DVT prophylaxis- SCPs, early ambulation Full code attending - Dr. Harris Requires ongoing inpatient stay given ongoing severe abdominal pain requiring increased dose of IV narcotics and aggressive fluid administration who is still only tolerating small sips of clears liquids without aggravation of pain Quality Stroke Does the patient have a stroke diagnosis?: No VTE Prior VTE?: No VTE Risk Level:: Medical - moderate - high VTE Device Contraindication: Treatment Not Indicated VTE Drug Contraindication: N/A - Med Ordered
[2023-08-24 15:25] VITALS: BP 144/80; PULSE 109; RESP 18; TEMP 37.1; O2SAT 93
[2023-08-24 18:48] VITALS: BP 138/86; PULSE 100; RESP 18; TEMP 37.2; O2SAT 92
[2023-08-24] MEDS: traZODone HCL 25 MG HALFTAB PO (21:16)
[2023-08-25] MEDS: traZODone HCL 25 MG HALFTAB PO ×3 (00:18→21:08)
[2023-08-25] MEDS: HYDROmorphone HCl 1 MG/ML SYRINGE 0.5 MG IVPUSH ×5 (02:32→20:04)
[2023-08-25 03:03] VITALS: BP 127/62; PULSE 66; RESP 18; TEMP 35.9; O2SAT 96
[2023-08-25 07:26] VITALS: BP 117/60; PULSE 100; RESP 22; TEMP 36.6; O2SAT 95
[2023-08-25] MEDS: Lactated Ringers 1,000 ML 100 ML IVCONT ×2 (07:31→20:08)
[2023-08-25] MEDS: PHENobarbitaL 30 MG TABLET PO ×2 (07:51→20:04)
[2023-08-25] MEDS: Thiamine HCL 100 MG TABLET PO (07:51)
[2023-08-25] MEDS: Folic Acid 1 MG TABLET PO (07:51)
[2023-08-25] MEDS: Thiamine HCL 100 MG in 0.9 % Sodium Chloride 100 ML 202 MG IV (07:51)
[2023-08-25] MEDS: Famotidine/PF 20 MG/2 ML VIAL IVPUSH (07:52)
[2023-08-25 08:45] LABS: Anion Gap 13 (12-20); Blood Urea Nitrogen 5 mg/dL (9-16); Calcium 8.3 mg/dL (8.4-10.2); Carbon Dioxide 23 mmol/L (22-29); Chloride 102 mmol/L (96-108); Creatinine Clr Calc Pharmacy 146.2; Estimated Glomerular Filt Rate > 60; Glucose Random 101 mg/dL (60-115); Magnesium 2.2 mg/dL (1.6-2.6); Potassium 3.6 mmol/L (3.3-5.1); Sodium 134 mmol/L (135-145)
--- NOTE | 2023-08-25 10:02 | HO.PM.IMPN ---
Subjective Subjective Date of Service: 08/25/23 Interval History: seen and examined this morning follow up for pancreatitis less nausea and abd pain today Review of Systems Review of Systems: Yes all other systems are reviewed and are negative Constitutional Constitutional: Denies chills and Denies fever(s) Cardiovascular Cardiovascular: Denies chest pain, Denies palpitations and Denies dyspnea Respiratory Respiratory: Denies cough and Denies dyspnea Gastrointestinal Gastrointestinal: Reports abdominal pain Endocrine Endocrine: Denies palpitations Physical Exam Vital Signs: Vital Signs: Last Vital Signs Temp 97.8 F 08/25/23 07:26 Pulse 100 08/25/23 07:26 Resp 22 H 08/25/23 07:26 BP 117/60 08/25/23 07:26 Pulse Ox 95 08/25/23 07:26 O2 Del Method Room Air 08/25/23 07:26 BMI result Body Mass Index 41.8 Appearing in no acute distress lung sounds are clear to auscultation heart regular rate rhythm, clear S1, S2 positive bowel sounds, abdomen is soft, nontender neuro patient is alert x3, no focal deficits Objective Data Active Medications Acetaminophen (Acetaminophen 325 Mg Tablet) 650 mg PO Q6H PRN PRN Reason: Pain, Mild (Pain Scale 1-3) Last Admin: 08/24/23 04:38 Dose: 650 mg Documented By: DOROTHY Famotidine (Famotidine/Pf 20 Mg/2 Ml Vial) 20 mg IVPUSH DAILY [facility] Last Admin: 08/25/23 07:52 Dose: 20 mg Documented By: PAUL Folic Acid (Folic Acid 1 Mg Tablet) 1 mg PO DAILY [facility] Last Admin: 08/25/23 07:51 Dose: 1 mg Documented By: PAUL Hydromorphone HCl (Hydromorphone Hcl 1 Mg/Ml Syringe) 0.5 mg IVPUSH Q4H PRN; Protocol PRN Reason: Pain, Severe (Pain Scale 7-10) Last Admin: 08/25/23 07:52 Dose: 0.5 mg Documented By: PAUL Thiamine HCl 100 mg/ Sodium (Chloride) 101 mls @ 202 mls/hr IV DAILY [facility] Last Infusion: 08/25/23 08:43 Dose: Infused Documented By: PAUL Lactated Ringer's (Lr) 1,000 mls @ 100 mls/hr IVCONT .Q10H [facility] Last Admin: 08/25/23 07:31 Dose: 100 mls/hr Documented By: PAUL Naloxone HCl (Naloxone Hcl 0.4 Mg/Ml Vial) 0.4 mg IVPUSH ONCE PRN PRN Reason: Respiratory Rate < 10 Ondansetron HCl (Ondansetron Hcl 4 Mg/2 Ml Vial) 4 mg IVPUSH Q8H PRN PRN Reason: Nausea and Vomiting Last Admin: 08/24/23 09:03 Dose: 4 mg Documented By: DULCE MARIA Oxycodone HCl (Oxycodone Hcl Immed Release 5 Mg Tablet) 5 mg PO Q6H PRN PRN Reason: Pain, Moderate(Pain Scale 4-6) Last Admin: 08/24/23 21:16 Dose: 5 mg Documented By: GEOFF Pharmacy Consult (Consult Rx Etoh Phenob Im/Po) 1 each MISCELLANE ONCE PRN; Protocol PRN Reason: Consult order Phenobarbital (Phenobarbital 30 Mg Tablet) 30 mg PO BID [facility] Stop: 08/25/23 21:01 Last Admin: 08/25/23 07:51 Dose: 30 mg Documented By: PAUL Phenobarbital (Phenobarbital 15 Mg Tablet) 15 mg PO DAILY [facility] Stop: 08/27/23 09:01 Senna (Sennosides 8.6 Mg Tablet) 17.2 mg PO BEDTIME PRN PRN Reason: Constipation Sodium Chloride (0.9 % Sodium Chloride Flush 3 Ml Syringe) 3 ml IVFLUSH QSHIFT [facility] Last Admin: 08/25/23 07:20 Dose: Not Given Documented By: PAUL Non-Admin Reason: IV Running Thiamine HCl (Thiamine Hcl 100 Mg Tablet) 100 mg PO DAILY [facility] Last Admin: 08/25/23 07:51 Dose: 100 mg Documented By: PAUL Trazodone HCl (Trazodone Hcl 25 Mg Halftab) 25 mg PO BEDTIME MRX1 PRN PRN Reason: Sleep Last Admin: 08/25/23 00:18 Dose: 25 mg Documented By: GEOFF Labs 08/24/23 04:32 08/25/23 08:11 Labs: Laboratory Results - last 24 hr 08/24/23 08/25/23 04:32 08:11 Anion Gap 13 Estim Creat Clear Calc 146.2 Estimated GFR > 60 Random Glucose 101 Calcium 8.3 L D Magnesium 2.2 Total Bilirubin 0.7 Direct Bilirubin 0.4 AST 34 H ALT 26 Alkaline Phosphatase 50 Total Protein 6.0 L Albumin 2.8 L Assessment and Plan (1) Pancreatitis: Status: Acute Plan 43-year-old female with history of alcohol use disorder to be observed for acute alcoholic pancreatitis and alcohol withdrawal. Still with significant abdominal pain on aggressive IVF and IV narcotics tolerating only small sips clear liquids. Lipase trending down. Pain worsening compared to yesterday, not tolerating clears Acute alcoholic pancreatitis with ongoing abdominal pain but better today repeat CT 08/23 with new peripancreatic fluid will reduce IVF continue supportive care alcohol cessation strongly advised diet advanced to regular Acute alcoholic ketoacidsis resolved Alcohol use disorder with alcohol withdrawal Continue phenobarbital per protocol IV thiamine, folic acid See recovery note. Pt to continue with [facility] on discharge and start medication once opioids discontinued hypokalemia. Resolved Leukocytosis reactive/inflammatory DVT prophylaxis- SCPs, early ambulation Full code attending - Dr. Osullivan Requires ongoing inpatient stay given ongoing severe abdominal pain requiring increased dose of IV narcotics and aggressive fluid administration who is still only tolerating small sips of clears liquids without aggravation of pain Quality Stroke Does the patient have a stroke diagnosis?: No VTE Prior VTE?: No VTE Risk Level:: Medical - moderate - high VTE Device Contraindication: Treatment Not Indicated VTE Drug Contraindication: N/A - Med Ordered
[2023-08-25] MEDS: oxyCODONE HCl Immed Release 5 MG TABLET PO ×2 (14:38→22:20)
[2023-08-25 15:21] VITALS: BP 134/81; PULSE 104; RESP 20; TEMP 37.6; O2SAT 96
[2023-08-25] MEDS: Acetaminophen 325 MG TABLET 650 MG PO ×2 (15:53→22:20)
[2023-08-25 17:00] VITALS: TEMP 36.9
[2023-08-25 19:44] VITALS: BP 131/83; PULSE 102; RESP 18; TEMP 36.2; O2SAT 96
[2023-08-26] MEDS: HYDROmorphone HCl 1 MG/ML SYRINGE 0.5 MG IVPUSH ×3 (00:02→08:03)
[2023-08-26 00:06] VITALS: BP 137/89; PULSE 94; RESP 16
[2023-08-26 03:57] VITALS: BP 142/76; PULSE 96; RESP 18; TEMP 37.1; O2SAT 96
[2023-08-26] MEDS: Acetaminophen 325 MG TABLET 650 MG PO (04:44)
[2023-08-26] MEDS: oxyCODONE HCl Immed Release 5 MG TABLET PO (04:44)
[2023-08-26] MEDS: Lactated Ringers 1,000 ML 100 ML IVCONT (04:46)
[2023-08-26 05:43] LABS: Anion Gap 10 (12-20); Blood Urea Nitrogen 5 mg/dL (9-16); Calcium 8.3 mg/dL (8.4-10.2); Carbon Dioxide 26 mmol/L (22-29); Chloride 103 mmol/L (96-108); Creatinine Clr Calc Pharmacy 132.2; Estimated Glomerular Filt Rate > 60; Glucose Random 136 mg/dL (60-115); Lipase 250 U/L (8-78); Potassium 3.4 mmol/L (3.3-5.1); Sodium 136 mmol/L (135-145)
[2023-08-26 07:04] VITALS: BP 137/74; PULSE 97; RESP 18; TEMP 36.3; O2SAT 94
[2023-08-26] MEDS: Folic Acid 1 MG TABLET PO (08:04)
[2023-08-26] MEDS: Thiamine HCL 100 MG TABLET PO (08:04)
[2023-08-26] MEDS: PHENobarbitaL 15 MG TABLET PO (08:04)
[2023-08-26] MEDS: Famotidine/PF 20 MG/2 ML VIAL IVPUSH (08:05)
--- NOTE | 2023-08-26 09:25 | PM.DS ---
DS: Providers Provider Date of Service: 08/26/23 Date of admission: 08/22/23 12:24 Primary care physician: None Physician Consults: 08/21/23 17:26 Addiction Medicine Routine Consulting Provider: Addiction Covering Reason for consultation: etoh dependence DS: Diagnosis Discharge Diagnosis (1) Pancreatitis: Status: Acute DS: Summary Hospital Course Hospital Course: History and physical as per admitting provider. 43-year-old female with history of alcohol use disorder presented to the ED earlier today for evaluation of severe abdominal pain ongoing since this morning. The patient reports she drinks about 1 L of vodka on a daily basis, last drink was last night. This morning woke up with severe diffuse abdominal pain but worse in the epigastric area. Reports some anorexia but denies any nausea, vomiting. No fevers, chills, diarrhea, lightheadedness, shortness of breath or chest pain. Has never had similar symptoms in the past. She states she does feel like she is withdrawing from alcohol with palpitations, anxiety, and tremors. Has had similar withdrawal symptoms in the past but has never experienced a withdrawal seizure gone through delirium tremens. She does desire detox. Denies any SI/HI. On arrival, vital stable though hypertensive at 153/101. There is a leukocytosis of 16.2, likely reactive/inflammatory. Renal function is normal, electrolyte levels normal except for CO2 14, anion gap 25. Glucose 136. AST/ALT 65/53. Troponin below detectable limits. Lipase 1430. Ethyl alcohol 95. CT abdomen/pelvis shows moderate peripancreatic infiltration/fluid consistent with pancreatitis but there is no necrosis noted. There is also fatty liver. In the ED, has been given 65 mg phenobarbital, 40 mg pantoprazole, 2 L IVF bolus, hydromorphone, and lorazepam. 43-year-old woman treated for acute alcoholic pancreatitis and alcohol withdrawal symptoms. She was treated with IV fluids, no cardiac pain medication, liquid diet that was advanced to regular. Her lipase has trended down and her pain has improved. She has been able to keep food down without any nausea or vomiting. She was treated with phenobarbital protocol for alcohol withdrawals symptoms and does not have any at this point. She was seen by the recovery team and given information for outpatient treatment. Patient should continue bland diet over the next couple a days. Plan is for patient to return home today. Hypokalemia. Likely from poor oral intake. Resolved after repletion Leukocytosis. Reactive/inflammatory, no signs of infection during hospitalization. Time Attestation Discharge coordination time: Greater than 30 minutes Quality: Safe Use of Opioids Does Pt have an Active Cancer Diagnosis on the Problem List?: No Quality: Stroke Does the patient have a stroke diagnosis?: No Physical Exam Vital Signs: Vital Signs: Last Vital Signs Temp 97.3 F 08/26/23 07:04 Pulse 97 08/26/23 07:04 Resp 18 08/26/23 07:04 BP 137/74 08/26/23 07:04 Pulse Ox 94 08/26/23 07:04 O2 Del Method Room Air 08/26/23 07:04 BMI result Body Mass Index 41.8 Appearing in no acute distress head is normocephalic atraumatic eyes pupils are PERRLA sclera is anicteric mouth throat mucous membranes are intact and moist neck is supple no lymphadenopathy, no JVD noted lung sounds are clear to auscultation heart regular rate rhythm, clear S1, S2 positive bowel sounds, abdomen is soft, nontender neuro patient is alert x3, no focal deficits DS: Data Data Completed and Pending Labs on day of discharge: Laboratory Results - last 24 hr 08/26/23 05:02 Hold Purple Top SEE NOTE Sodium 136 Potassium 3.4 Chloride 103 Carbon Dioxide 26 Anion Gap 10 L BUN 5 L Creatinine 0.73 Estim Creat Clear Calc 132.2 Estimated GFR > 60 Random Glucose 136 H Calcium 8.3 L Lipase 250 H Discharge Plan Discharge Anticipated Discharge Date/Time: 08/26/23 09:24 Patient Disposition: Home, Self-Care Discharge Diagnosis: pancreatitis etoh withdrawal Discharge Medications: Continued meloxicam 15 mg tablet 15 mg PO DAILY Qty: 14 0RF cyclobenzaprine 10 mg tablet 10 mg PO BEDTIME Qty: 14 0RF Discharge Orders: Discharge Order (Routine); Ordered 08/26/23 Ordered By: Clemencia Rivers Diet: [place] diet for 1 week Activity on Discharge: As tolerated Stand Alone Forms: Patient Portal Discharge page Care Plan Goals: Do not drink alcohol, seek programs in the community to help you with this Health Concerns: pancreatitis etoh withdrawal Plan of Treatment: Follow-up with primary care provider as needed Assessment: See Discharge summary
--- NOTE | 2023-08-26 10:15 | MHC.CM.PN ---
PT WILL DC HOME TODAY WITH NO SERVICES PT TO ARRANGE TRANSPORT
== END 2023-08-26 10:33 | disposition home or self-care (01) | DRG 282 ==
LOC: HO.ED 15:56 → HO.EDOVER 20:08 → HO.S3 08-22 13:08
PROVIDERS: Physician Assistant; Physician Assistant Medical; Admitting Provider Physician Assistant; Emergency Provider Emergency Medicine; Visit Provider Nurse Practitioner Acute Care
DX: K85.20 Alcohol induced acute pancreatitis without necrosis or infection (principal); E87.29 Other acidosis; F10.239 Alcohol dependence with withdrawal, unspecified; D72.829 Elevated white blood cell count, unspecified; E87.6 Hypokalemia; Y90.4 Blood alcohol level of 80-99 mg/100 ml; Z79.899 Other long term (current) drug therapy
CPT/HCPCS: 36415; 74177; 80048; 80053; 80076; 80307; 81001; 83690; 83735; 84484; 84702; 85025; 85610; 85730; 93005; 99221; 99285; C9113; J1170; J2270; J2405; J2560; J3411; J3475; J7120; Q9967

== ENCOUNTER → 2023-08-21 11:29 | Outpatient (BNV) | payer BC, SELFPAY | PROVIDERS: Emergency Provider Emergency Medicine; Visit Provider Internal Medicine Cardiovascular Disease | DX: R07.9 Chest pain, unspecified (principal) | CPT/HCPCS: 93010 ==

== ENCOUNTER → 2023-08-21 14:17 | Outpatient (BNV) | payer BC, SELFPAY | PROVIDERS: Emergency Provider Emergency Medicine; Visit Provider Physician Assistant | DX: K85.90 Acute pancreatitis without necrosis or infection, unspecified (principal) | CPT/HCPCS: 99223; 99232; 99239 ==